=== PATIENT | female | born 1980 | race Caucasian/White ===

== ENCOUNTER 2018-07-02 17:59 | Emergency (ER) | payer MEDICAID ==
--- NOTE | 2018-07-02 19:02 | EDPHY ---
General Time Seen by Provider: 07/02/18 18:45 Narrative: CHIEF COMPLAINT: Back pain HISTORY OF PRESENT ILLNESS: Patient presents with complaints of low back pain. This originally started 2011 when she had a "damaged disc" in the lumbar spine. She reports this was due to scoliosis. She had several exacerbations of this over the 2 years, she is status post T10 through L5 fusion in 2012. She has had pain ongoing that have been response to the medications the past. Starting April 22, she has increasing low back pain with left-sided radicular symptoms. He has have wax and wane and have been responsive to steroid therapies at times. With past 3 weeks however, she has had increasing pain. It is now rated as severe. She reports that it is limiting her range of motion in her ambulatory status. She has pain that radiates down the left leg, left buttock into the left knee but not beyond this. She reports some "pins and needles the left foot side only." No saddle anesthesia. No incontinence of bowel or bladder. No footdrop. She has seen her primary care physician for this and been taking Marinette with no improvement. No muscle relaxants recently. No other associated complaints or modifying factors REVIEW OF SYSTEMS: Ten systems reviewed and are negative unless otherwise noted in the HPI PAST MEDICAL HISTORY: Lumbar radiculopathy, chronic low back pain, scoliosis, PCOS PAST SURGICAL HISTORY: Thoracolumbar fusion, tubal ligation SOCIAL HISTORY: Nonsmoker. Lives independently. 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 Brisk cap refill Back: Well-healed midline surgical incision. There is tenderness of the lumbar musculature. No crepitus or deformity. Mild scoliosis. Neurological: GCS 15. A&O, antalgic gait but no ataxia. Strength is symmetric in lower extremities involving the hips and knees. Her may be 1 degree of weakness at the left foot but great toes are symmetric. Light sensory symmetric below the knees. Patellar reflexes symmetric at 2+. Skin: Warm and dry, no rash no petechiae or purpura. Extremities: Nontender, no pedal edema Psychiatric: Mood and affect normal DIFFERENTIAL DIAGNOSES: Including but not limited to lumbar radiculopathy, disc bulge, disc herniation, acute cord compression, cauda equina, nerve root compression MDM: 6:55 p.m. Ongoing lower back pain with left-sided radiculopathy without any focal deficits. There may be 1. Degree of very mild weakness in the left ankle. She denies any saddle anesthesia. There is no incontinence of bowel or bladder. No retention of bowel bladder. She has an antalgic but steady gait. I do not think she has acute her depression or cauda equina. We discussed short course of pain medication and muscle relaxant with close follow up with Neurosurgery for MRI. I do feel she will need this soon. I do not feel we need to emergently pursue this at this time. We discussed that she must follow up closely with neurosurgery in case management persistence with MRI. We discussed returning here if she does not have significant improvement in her pain within 24 hr. We discussed return to emergency department immediately for any footdrop, saddle anesthesia, incontinence of bowel or bladder, retention of bowel or bladder, fever, headache, neck pain or stiffness. She is comfortable this plan. I provided medication prescriptions for Percocet and Flexeril. She is discharged home stable condition. I have also requested case management to review assist with outpatient follow-up. SUPERVISION: This patient was independently evaluated without direct involvement of or examination by the attending physician. - History Smoking Status: Never smoked - Objective Vital Signs: Initial Vital Signs Temperature (C) 99.0 F 07/02/18 18:29 Heart Rate 75 07/02/18 18:29 Respiratory Rate 16 07/02/18 18:29 Blood Pressure 161/93 H 07/02/18 18:29 O2 Sat (%) 98 07/02/18 18:29 O2 Delivery Mode Room Air Allergies/Adverse Reactions: latex Allergy (Verified 07/02/18 18:28) theophylline Allergy (Verified 07/02/18 18:28) Home Medications: Medication Instructions Recorded Baclofen 07/02/18 Cyclobenzaprine [Flexeril 10 MG 10 mg PO TID PRN #15 tab 07/02/18 (*)] Diclofenac Sodium 07/02/18 Sertraline HCl 07/02/18 oxyCODONE HCL/ACETAMINOPHEN 1 each PO Q4-6PRN PRN #12 tablet 07/02/18 [Percocet 5-325 mg Tablet] Departure - Departure Disposition: Home, Routine, Self-Care Clinical Impression: Lumbar back pain with radiculopathy affecting left lower extremity Condition: Good Instructions: Lumbar Radiculopathy (ED), Lower Back Exercises (ED) Additional Instructions: 1. Medications as prescribed as needed 2. Contact on-call neurosurgeon for outpatient further care and MRI 3. Contact case operator in this emergency department tomorrow at 4. ED precautions for any sudden increase in pain, anesthesia, incontinence of bowel or bladder, foot drop, weakness Referrals: Coni Priest NP [Primary Care Provider] - As per Instructions Adam Aj MD [Medical Doctor] - As per Instructions Stand Alone Forms: Work Excuse Prescriptions: Cyclobenzaprine [Flexeril 10 MG (*)] 10 mg PO TID PRN #15 tab PRN Reason: Spasms oxyCODONE HCL/ACETAMINOPHEN [Percocet 5-325 mg Tablet] 1 each PO Q4-6PRN PRN # 12 tablet PRN Reason: Pain, Breakthrough
[2018-07-02 19:15] VITALS: BP 158/93
--- NOTE | 2018-07-03 12:46 | ASMTCMCOM ---
CM Note CM Note Notes: Received a CM Consult order request to assist pt with follow-up w/on-call neurosurgeon Dr Aj at [facility].([phone]) and also help pt get an outpatient MRI (with and without contrast) as soon as possible. Spoke w/scheduling staff at [facility] and was able to get pt an appt w/Dr Aj on 07/07/18 at 2pm (arrival time at 1:45pm) at their [place] location. Cosmetic Sales Advisor aware that pt may not be able to get her MRIs completed by then and she said that if that was the case, Dr Aj would still see her w/o imaging and then go from there. Spoke w/pt and she confirmed that this day, time and location would work for her. Spoke w/the RN Tool Design Engineer, Sandra Cui ([phone]) at [facility], where pt is followed by Coni Priest NP. Discussed pt's ED visit and pt's need for urgent outpatient MRI; Sandra states she will reach out to the patient and assist with getting the MRIs ordered and scheduled. Pt said she has had difficulty for the last 3 weeks w/getting an MRI authorized by Medicaid. Hopefully this time it will go through. CM available for further assistance if needed. Date Signed: 07/03/2018 12:45 PM Electronically Signed By:Kristin Rodas RN
== END 2018-07-02 19:13 | disposition home or self-care (01) ==
DX: M54.16 Radiculopathy, lumbar region (principal); Z98.1 Arthrodesis status

== ENCOUNTER → 2018-07-15 | Outpatient (CLI) | payer MEDICAID ==
[~2018-07-15] MED LIST: ACETAMINOPHEN 325 MG TAB PO PRN; CYCLOBENZAPRINE 10 MG TAB PO ONE; FLUMAZENIL 0.5 MG/5 ML MDV IVP PRN; GADOBUTROL 10 ML VIAL IVP ONE; MIDAZOLAM 2 MG/2 ML VIAL IVP PRN; NALOXONE HCL 0.4 MG/ML INJ IVP PRN; NS 1,000 ML IV SCH; ONDANSETRON 4 MG/2 ML VIAL IVP PRN; fentaNYL 100 MCG/2 ML INJ IVP PRN
--- NOTE | 2018-07-15 15:50 | PDPROPOC ---
Sedation Plan of Care ASA Classification: ASA 2 Mallampati Score: Class 2 Mallampati Reference Image:
[2018-07-15 18:37] VITALS: BP 141/91
== END | disposition home or self-care (01) ==
LOC: FIMAGING 07-14 16:50
PROVIDERS: ATTEND Nurse Practitioner Family
DX: M51.26 Other intervertebral disc displacement, lumbar region (principal); Z98.1 Arthrodesis status
CPT/HCPCS: A9585; J2250; J2310; J3010

== ENCOUNTER → 2018-10-04 | Outpatient (CLI) | payer MEDICAID | LOC: CIMAGING 09:12 | PROVIDERS: ATTEND Neurological Surgery | DX: M51.36 Other intervertebral disc degeneration, lumbar region (principal); M51.37 Other intervertebral disc degeneration, lumbosacral region; Z98.1 Arthrodesis status | CPT/HCPCS: 72100-PO ==